=== PATIENT | male | born 1995 | race Caucasian/White ===

== ENCOUNTER 2017-07-18 13:45 | Emergency (ER) | payer BC, OTHER ==
[~2017-07-18] VITALS: Ht 180.3 cm; Wt 112.1 kg
[2017-07-18 13:50] VITALS: TEMP 36.9; Ht 180.3 cm; Wt 112.1 kg
[2017-07-18] MEDS ORDERED: ONDANSETRON INJ 2 MG/ML 2 ML VIAL IV STA (14:54)
[2017-07-18] MEDS ORDERED: SODIUM CHLORIDE 0.9% 1000ML 1,000 ML IV ONE (15:00)
[2017-07-18 15:13] LABS: BASO % 0.1 %; BASO ABS # 0.02 K/uL (0-0.2); COMPLETE YES; EOS % 0.1 %; HEMATOCRIT 45.2 % (42-52); IG% 0.3 %; LYMPH % 9.4 %; LYMPH ABS # 1.46 K/uL (1.2-3.4); MEAN CELL VOLUME 82.8 fL (80-100); MEAN CORPUSCULAR HEMOGLOBIN 28.8 pg (25-34); MEAN CORPUSCULAR HGB CONC 34.7 g/dl (32-36); MEAN PLATELET VOLUME 9.5 fL (7.4-10.4); MONO % 4.7 %; NEUT % 85.4 %; PLATELET COUNT 249 K/uL (130-400); RED BLOOD COUNT 5.46 M/uL (4.7-6.1)
[2017-07-18 15:26] LABS: BUN/CREATININE RATIO 11.2 (10-20); CALCIUM 9.3 mg/dl (8.5-10.1); CREATININE 1.21 mg/dl (0.60-1.40)
[2017-07-18] MEDS ORDERED: CALC500C3 PO (15:37)
--- NOTE | 2017-07-18 15:41 | EMERGENCY ROOM VISIT NOTE ---
History First contact with patient: 14:45 Chief Complaint: ABDOMINAL PAIN Stated Complaint: STOMACH PAIN Nursing Triage Summary: triage note: Pt reports mid abd pain since last night. pt reports nausea and vomitting. History of Present Illness The patient is a 22 year old male who presents to the Emergency Room with complaints of epigastric abdominal pain, nausea and vomiting that started last night. The patient reports he epigastric pain is sharp, and intermittent. It does not seem to be related to eating. It is worse lying flat. It is better sitting up. He has not taken anything for pain. He started vomiting around 1 AM last night. He has not been able to keep anything down. He does note that he had a normal bowel movement this morning. He denies fever or chills. He denies any sick contacts or recent travel. The patient did see a doctor in [place] about this intermittent epigastric pain. He does get this every so often, which has been going on for the last few years. He has not been given a diagnosis. He does drink a fair amount of coffee. Occasional alcohol use. Review of Systems 10 system review performed and negative unless noted in HPI or below Past Medical/Surgical History History of anterior cruciate ligament surgery Social History Smoking Status: Never Smoker Alcohol Use: occasionally Marital Status: Housing Status: lives with significant other Occupation Status: employed Current/Historical Medications Scheduled Ondasetron Odt (Zofran Odt), 4 MG SL Q6H Scheduled PRN Calcium Carbonate (Tums), 500 MG PO UD PRN for Heartburn Physical Exam Vital Signs Date Time Temp Pulse Resp B/P (MAP) Pulse Ox O2 Delivery O2 Flow Rate FiO2 07/18/17 17:02 79 18 143/94 99 07/18/17 15:10 66 18 138/56 97 Room Air 07/18/17 13:50 36.9 103 18 148/88 97 Room Air Physical Exam VITALS: Vitals are noted on the nurse's note and reviewed by myself. Vital signs stable. GENERAL: 22-year-old male, in no acute distress, nondiaphoretic, well-developed well-nourished. SKIN: The skin was without rashes, erythema, edema, or bruising. HEAD: Normocephalic atraumatic. MOUTH: Mucous membranes dry NECK: Supple without nuchal rigidity. No JVD. HEART: Regular rate and rhythm without murmurs gallops or rubs. LUNGS: Clear to auscultation bilaterally without wheezes, rales or rhonchi. No accessory muscle use. ABDOMEN: Sounds present, but hypoactive.Soft, nontender, without organomegaly. No guarding or rebound tenderness. MUSCULOSKELETAL: No muscle atrophy, erythema, or edema noted. Strength 5/5 throughout. NEURO: Patient was alert and oriented to person place and time. Normal sensation to touch. No focal neurological deficits. Medical Decision & Procedures ER Provider Diagnostic Interpretation: Chest/abdomen x-rays IMPRESSION: A few prominent gas-filled loops of small bowel throughout the abdomen containing small fluid levels. However, no evidence for bowel obstruction. This favors a gastroenteritis. Electronically signed by: Art Rodriguez M.D. 07/18/2017 4:03 PM Dictated Date/Time: 07/18/2017 4:01 PM The status of this report is Signed. Laboratory Results 07/18/17 15:03 Red Blood Count 5.46, Mean Corpuscular Volume 82.8, Mean Corpuscular Hemoglobin 28.8, Mean Corpuscular Hemoglobin Concent 34.7, Mean Platelet Volume 9.5, Neutrophils (%) (Auto) 85.4, Lymphocytes (%) (Auto) 9.4, Monocytes (%) (Auto) 4.7, Eosinophils (%) (Auto) 0.1, Basophils (%) (Auto) 0.1, Neutrophils # (Auto) 13.22, Lymphocytes # (Auto) 1.46, Monocytes # (Auto) 0.73, Eosinophils # (Auto) 0.02, Basophils # (Auto) 0.02 07/18/17 15:03 Test 07/18/17 15:03 White Blood Count 15.50 K/uL (4.8-10.8) Red Blood Count 5.46 M/uL (4.7-6.1) Hemoglobin 15.7 g/dL (14.0-18.0) Hematocrit 45.2 % (42-52) Mean Corpuscular Volume 82.8 fL (80-100) Mean Corpuscular Hemoglobin 28.8 pg (25-34) Mean Corpuscular Hemoglobin Concent 34.7 g/dl (32-36) Platelet Count 249 K/uL (130-400) Mean Platelet Volume 9.5 fL (7.4-10.4) Neutrophils (%) (Auto) 85.4 % Lymphocytes (%) (Auto) 9.4 % Monocytes (%) (Auto) 4.7 % Eosinophils (%) (Auto) 0.1 % Basophils (%) (Auto) 0.1 % Neutrophils # (Auto) 13.22 K/uL (1.4-6.5) Lymphocytes # (Auto) 1.46 K/uL (1.2-3.4) Monocytes # (Auto) 0.73 K/uL (0.11-0.59) Eosinophils # (Auto) 0.02 K/uL (0-0.5) Basophils # (Auto) 0.02 K/uL (0-0.2) RDW Standard Deviation 38.8 fL (36.4-46.3) RDW Coefficient of Variation 12.9 % (11.5-14.5) Immature Granulocyte % (Auto) 0.3 % Immature Granulocyte # (Auto) 0.05 K/uL (0.00-0.02) Anion Gap 8.0 mmol/L (3-11) Est Creatinine Clear Calc Drug Dose 120.9 ml/min Estimated GFR () 97.2 Estimated GFR (Non- 83.9 BUN/Creatinine Ratio 11.2 (10-20) Calcium Level 9.3 mg/dl (8.5-10.1) Total Bilirubin 0.4 mg/dl (0.2-1) Aspartate Amino Transf (AST/SGOT) 34 U/L (15-37) Alanine Aminotransferase (ALT/SGPT) 39 U/L (12-78) Alkaline Phosphatase 67 U/L (45-117) Total Protein 8.6 gm/dl (6.4-8.2) Albumin 4.2 gm/dl (3.4-5.0) Globulin 4.4 gm/dl (2.5-4.0) Albumin/Globulin Ratio 1.0 (0.9-2) Lipase 293 U/L (73-393) Medications Administered Medications (Trade) Dose Ordered Sig/La Route Start Time Stop Time Status Last Admin Dose Admin Ondansetron HCl (Zofran Inj) 4 mg NOW STAT IV 07/18/17 14:54 07/18/17 14:56 DC 07/18/17 15:08 4 MG Sodium Chloride 1,000 ml @ 999 mls/hr Q1H1M ONCE IV 07/18/17 15:00 07/18/17 16:00 DC 07/18/17 15:08 999 MLS/HR ED Course Patient was seen and examined Vital signs including blood pressure were reviewed medications list was verified with patient Labs were obtained, and a saline lock was established She was medicated with Zofran and hydrated with 1 L of normal saline Upon reevaluation, the patient was feeling much better. He was tolerating liquids. We discussed his workup. The patient was also seen and examined by my supervising physician, Dr. Mann I reviewed discharge instructions the patient. They voiced understanding and had no further questions. Medical Decision DIFFERENTIAL DIAGNOSIS: Gastroenteritis, Hepatitis, cholecystitis, cholangitis, biliary colic, pancreatitis, appendicitis, inguinal hernia, nephrolithiasis, inflammatory bowel disease, mesenteric adenitis, peptic ulcer disease, GERD, gastritis, pancreatitis,, bowel obstruction, splenic infarct, diverticulitis, mesenteric ischemia, metabolic, peritonitis, among others. This patient is a 22-year-old male presented to the emergency department with nausea, vomiting and epigastric pain starting last night. On exam, the patient was nontoxic in appearance. He did appear slightly dehydrated. His abdomen was benign. He was afebrile. Labs reveal leukocytosis with a white count of 15 ,000. X-rays show some fluid levels in the small bowel, but no signs of obstruction. This is likely consistent with a gastroenteritis. The patient had good symptomatic relief from the emergency department. I do not have a suspicion of a surgical abdomen. I believe this is likely a viral GI illness. The patient will be discharged with a prescription for Zofran and advised to follow up closely with his primary care physician. He agrees to return to the emergency department with any new or concerning symptoms. This chart was completed in part utilizing [employer] Speech Voice Recognition software. Attempts were made to minimize the grammatical errors, random word insertions, pronoun errors and incomplete sentences. Any formal questions or concerns about the content, text or information contained within the body of this dictation should be directly addressed to the provider for clarification. Medication Reconcilliation Current Medication List: was personally reviewed by me Impression Primary Impression: Vomiting Departure Information Dispostion Home / Self-Care Condition GOOD Prescriptions Ondasetron Odt (ZOFRAN ODT) 4 Mg Tab 4 MG SL Q6H for Nausea, #20 TAB Prov: Yadi Iniguez PA-C 07/18/17 Referrals Mazin Bae M.D. (PCP) Patient Instructions My [facility] Additional Instructions You were evaluated in the emergency department for vomiting and abdominal pain this is likely due to a viral GI illness. Please stick with a clear liquid diet such as broth, sports drinks and tawanda larry this evening. If feeling better, advance to a bland diet such as saltines, dry toast and chicken soup Zofran 1 tab under the tongue every 6 hours as needed for nausea Please follow-up with your primary care physician for a recheck in the next 3-5 days Please return to the emergency department for any new, worsening or concerning symptoms
--- NOTE | 2017-07-18 16:04 | DIAGNOSTIC IMAGING REPORT ---
CHEST AND ABDOMEN 2 VIEWS HISTORY: Generalized abdominal pain. Vomiting. COMPARISON: None. FINDINGS: The lungs are clear. The cardiomediastinal silhouette is within normal limits. There is no pneumoperitoneum or pneumatosis. A few prominent gas-filled loops of small bowel throughout the abdomen containing small fluid levels. However, no evidence for bowel obstruction. No pathologic calcifications. IMPRESSION: A few prominent gas-filled loops of small bowel throughout the abdomen containing small fluid levels. However, no evidence for bowel obstruction. This favors a gastroenteritis. Electronically signed by: Art Rodriguez M.D. 07/18/2017 4:03 PM Dictated Date/Time: 07/18/2017 4:01 PM
[2017-07-18] MEDS ORDERED: ONDA4TAB10 SL ×2 (16:42→16:59)
[2017-07-18 17:02] VITALS: BP 143/94; PULSE 79; O2SAT 99
--- NOTE | 2017-07-18 20:07 | EMERGENCY ROOM VISIT NOTE ---
ED Visit Note First contact with patient: 14:45 I have personally evaluated this patient examined her and reviewed the pertinent labs and data. I have discussed the case with Yadi Iniguez, physician assistant professor of psychology and agree with the plan. Please refer to the PA note. This patient has had vomiting and epigastric pain. He has been hunting but no has had no trauma. He ate some sandwiches for lunch which may have been suspicious. He did receive IV fluids and IV Zofran and feels 100% better. On my exam, he is not tender is no tenderness over lower abdomen. Think is more likely gastritis. His white count is elevated and is likely from vomiting. I do not think is likely appendicitis. He has no tenderness with palpation or movement. He desires to go home at this point, I do not think we needed CAT scan or irradiate him he agrees. He will however return if : increasing pain, fever or chills, worsening of symptoms, any new problems or concerns. He is happy the plan and discharged to home.
== END 2017-07-18 17:04 | disposition home or self-care (01) ==
LOC: C.EDB 13:47 → C.EDA 17:04
DX: R11.2 Nausea with vomiting, unspecified (principal); R10.13 Epigastric pain